=== PATIENT | male | born 1940 | race American Indian/Alaskan Native ===

== ENCOUNTER 2018-08-24 08:57 | Day surgery (SDC) | payer OTHER ==
[2018-08-24] MEDS ORDERED: Iohexol 350mgl/ml 50 ML ONE (09:39)
[2018-08-24] MEDS ORDERED: Lidocaine PF 2% (5 ml) Inj (For Cardiac Arrhy) ONE (09:39)
[2018-08-24] MEDS ORDERED: Iodixanol 320 MG/ML 100 ML BOTTLE IV ONE (09:40)
[2018-08-24] MEDS ORDERED: Iodixanol 320 MG/ML 200 ML BOTTLE IV ONE (09:40)
[2018-08-24] MEDS ORDERED: Phenylephrine 10 mg/ml Inj ONE (09:41)
[2018-08-24] MEDS ORDERED: Nitroglycerin 50mg in D5W 50 MG/250 ML BOTTLE IV ONE (09:42)
[2018-08-24 09:46] VITALS: BMI 19.2
[2018-08-24] MEDS ORDERED: Midazolam 2 MG/2 ML VIAL ONE (10:59)
[2018-08-24] MEDS ORDERED: Sodium Chloride 0.9% 1,000 ML IV SCH (11:45)
--- NOTE | 2018-08-24 14:31 | CARD ---
APPROVED REPORT Date of service: 08/24/2018 EKG Measurement Heart [id number] <Conclusion> Normal sinus rhythm Left Anterior Meir-Block. Moderate voltage criteria for LVH, may be normal variant Anteroseptal infarct, age Old?
[2018-08-24 17:18] VITALS: TEMP 98.8
[2018-08-24 18:54] VITALS: BP 138/63; RESP 19
[2018-08-24 18:56] VITALS: PULSE 70
--- NOTE | 2018-08-27 01:44 | CARDCATH ---
PROCEDURE DATE: 08/24/2018 PROCEDURE: Percutaneous coronary intervention and drug-eluting stent placement of the right coronary artery. CLINICAL INDICATIONS: 1. Abnormal EKG. 2. Chest pain. 3. Coronary artery disease. 4. Non-ST elevation myocardial infarction. 5. Hyperlipidemia. REFERRING PHYSICIAN: Tom Dias MD PERFORMING PHYSICIAN: Bronson Watts MD DESCRIPTION OF THE PROCEDURE: After informed consent, the patient was prepped and draped in the usual sterile fashion. A 2% lidocaine was given in the left groin for the local anesthesia. Using micropuncture technique, 6-Cypriot sheath was introduced into the left common femoral artery. The patient was preloaded with aspirin, Plavix, and IV heparin. Right coronary artery was engaged using JR4 6-Cypriot guiding catheter with . Contrast injected and right coronary angiogram was done. Right coronary angiogram revealed 90% mid to distal LAD stenosis of the right coronary artery. Right coronary artery was threaded using Runthrough coronary wire. The lesion was predilated using 2.0 x 20 Compliant balloon, later stented with 2.0 x 32 Resolute Panda drug-eluting stent. Excellent final angiographic results with brisk SRAVANI 3 flow noted. Prior to the stent placement, the patient had a SRAVANI 2 flow distally. IMPRESSION: Successful percutaneous coronary intervention of the right coronary artery with drug-eluting stent. The patient tolerated the procedure well. Postprocedure, Perclose suture deployed in the left groin with excellent hemostasis. The patient will be transferred to [facility] for further management. Bronson Watts MD
== END 2018-08-24 18:48 | disposition short-term general hospital (02) ==
LOC: CATH 08:57 → 2RSO 12:38 → CATH 18:48
PROVIDERS: ATTEND Internal Medicine Cardiovascular Disease
DX: I21.4 Non-ST elevation (NSTEMI) myocardial infarction (principal); I25.10 Atherosclerotic heart disease of native coronary artery without angina pectoris; I10 Essential (primary) hypertension; E78.5 Hyperlipidemia, unspecified; N40.0 Benign prostatic hyperplasia without lower urinary tract symptoms
CPT/HCPCS: 85175; 93005; 94770; 99152; 99153; C1725; C1760; C1769 ×2; C1874; C1887; C1894; C9600; J1644 ×2; J2250; J3010; J7030; J7040; Q9966; Q9967